=== PATIENT | female | born 1970 | race Caucasian/White ===

== ENCOUNTER 2017-05-11 15:54 | Emergency (ER) | payer MEDICARE ==
[2017-05-11] MEDS ORDERED: NS 0.9% 1000 ML* 1,000 ML IV ONE (16:29)
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
[2017-05-11 21:03] VITALS: BP 143/64
== END 2017-05-11 17:35 | disposition left against medical advice (07) ==
LOC: ED 15:54
DX: R55 Syncope and collapse (principal); R11.0 Nausea
CPT/HCPCS: 93005; 99281